=== PATIENT | female | born 1955 | race Caucasian/White ===

== ENCOUNTER → 2017-04-08 | Outpatient (CLI) | payer OTHER | END | disposition home or self-care (01) | LOC: CDC 13:30 | DX: D05.11 Intraductal carcinoma in situ of right breast (principal); C50.912 Malignant neoplasm of unspecified site of left female breast | CPT/HCPCS: 93000 ==

== ENCOUNTER 2017-04-23 06:04 | Day surgery (SDC) | payer OTHER ==
[~2017-04-23] VITALS: Ht 160 cm; Wt 94.8 kg
[~2017-04-23 06:04] MED LIST: MEVACOR40 MG PO; ZESTRIL20 MG PO
[2017-04-23 06:27] VITALS: BP 138/71
[2017-04-23] MEDS ORDERED: PERCOCET 5/31 TABLET PO (17:14)
[2017-04-23 17:50] VITALS: BP 145/63
[2017-04-23 18:16] VITALS: BP 141/69
== END 2017-04-23 18:20 | disposition home or self-care (01) ==
LOC: SDC 06:04 → NUC 07:00 → SDC 07:00
DX: C50.212 Malignant neoplasm of upper-inner quadrant of left female breast (principal); D05.11 Intraductal carcinoma in situ of right breast; I10 Essential (primary) hypertension
CPT/HCPCS: 78195; 78999; 88307; A9541; J0131; J0330; J0690; J1100; J1885; J2250; J2405; J3010